=== PATIENT | female | born 1975 | race Caucasian/White ===

== ENCOUNTER 2016-10-04 16:36 | Emergency (ER) | payer BC ==
[~2016-10-04] VITALS: Ht 162.6 cm; Wt 107.7 kg
[~2016-10-04 16:36] MED LIST: ASPI1TAB7 PO; DICL75TA5 PO; IBUP-1724 PO; OMEP20CA10 PO; PROM25TA7 PO
[2016-10-04 16:53] VITALS: Ht 162.6 cm; Wt 107.7 kg
[2016-10-04] MEDS ORDERED: LISI-621 PO (16:59)
--- NOTE | 2016-10-04 17:45 | ERPDOC ---
Departure Disposition Decision Date: October 04, 2016 Disposition Decision Time: 20:07 (MICKY TAYLOR APRN) Disposition: 01 DISCHARGED HOME, SELF-CARE Impression Impression (MICKY TAYLOR APRN) Impression: Primary Impression: Abdominal pain Severity: Moderate (MICKY TAYLOR APRN) Condition: Improved Seen By: Mid-level only (MICKY TAYLOR APRN) Patient Instructions: Abdominal Pain (ED), Diet for Stomach Ulcers and Gastritis (ED) Problems/Meds/Labs Reviewed?: Yes Medications reviewed and manag: Yes (MICKY TAYLOR APRN) Additional Instructions: 1. Take Prilosec as prescribed each day 30 minutes prior to eating 2. Modify your diet by eliminating alcohol, caffeine, spicy and fatty foods. 3. Follow up with your primary care doctor for further care. Follow up care ordered?: Yes Mental Status: Alert, Oriented (MICKY TAYLOR APRN) Scripts Omeprazole (Omeprazole) 20 Mg Capsule.dr 20 MG PO ACB, #30 CAP Take 1 capsule, by mouth, one time a day (before breakfast). Prov: MICKY TAYLOR APRN 10/04/16 HPI - Abdominal Pain General Chief Complaint: Abdominal Pain Stated Complaint: ABD PAIN Time Seen by Provider: 17:45 Source: patient History/Exam Limitations: no limitations (MICKY TAYLOR APRN) Time Seen by Provider: 05:53 (VINITA YEN DO) HPI - Abdominal Pain Initial Comments Caitlin is a 41 year old white female who comes to the Er with cc: 3 days of left upper quadrant abdominal pain. Denies recent trauma, denies history of abdominal problems, but does have a hx of heartburn when she eats spicy foods. Describes pain as sharp and knife like going from LUQ through to her back at times. Diet is quite poor, eats mostly processed foods. This morning ate cheese its for breakfast around 330 am, then a bologna sandwich and large Dr Pepper for lunch. Indicates normally eating chips throughout the day and drinking Dr. Peppers. Has about 120 oz of caffeinated beverages daily. Denies vomiting, does have a little nausea. No fevers. No diarrhea. No constipation. No blood in stool. No prior EGD or colonoscopy. Denies chest pain. Has been coughing lately and felt like the pain was related to pulling something with coughing. Denies dysuria or hematuria. Denies flank pain. Has been working 12+ hr shifts and did work all day today as well. Onset: Getting worse Duration: other (3 days) Pain Scale: Now: 6/10 Location: LUQ Radiation: back Associated Symptoms: DENIES: fever/chills, swelling/mass in abdomen (MICKY TAYLOR APRN) Allergies: Coded Allergies: Influenza Virus Vaccines (Verified Allergy, Severe, 10/04/16) Past History Past Medical History Metabolic: hypertension, DENIES: diabetes GI: GERD Neurological: migraines Psychological: depression (MICKY TAYLOR APRN) Surgical History Reproductive/: , tubal ligation (MICKY TAYLOR APRN) Vaccines Hx Influenza Vaccination: No (ALLERGIC) Hx Pneumococcal Vaccination: No Hx Tetanus, Diptheria, Pertuss: No (MICKY TAYLOR APRN) Social History Smoking Status: Current every day smoker # of Packs/Tins per Day: 0.5 Substance Use Type: does not use Alcohol Intake: occasionally Current Occupational Status: employed (MICKY TAYLOR APRN) Review of Systems Constitutional Constitutional: DENIES: dizziness, fever (MICKY TAYLOR APRN) ENMT Mouth/Throat: DENIES: sore throat (MICKY TAYLOR GLOBAL MARKETING COORDINATOR) Cardiovascular Cardiac: DENIES: chest pain (MICKY TAYLOR APRN) Pulmonary Respiratory: cough (MICKY TAYLOR GLOBAL MARKETING COORDINATOR) GI Upper Abdomen: nausea, DENIES: vomiting (MICKY TAYLOR GLOBAL MARKETING COORDINATOR) General: DENIES: dysuria, hematuria (MICKY TAYLOR GLOBAL MARKETING COORDINATOR) Integumentary Skin: DENIES: rash (MICKY TAYLOR APRN) All other Systems All Other Systems: Reviewed and Negative (MICKY TAYLOR APRN) Physical Exam General General Nourishment: appears stated age, no acute distress, obese (MICKY TAYLOR APRN) Vitals and Pain First Documented Vital Signs Date Time Temp Pulse Resp B/P Pulse Ox O2 Delivery O2 Flow Rate FiO2 10/04/16 16:53 98.2 84 20 176/102 98 Room Air (VINITA YEN DO) Vitals and Pain Weight: Kilograms: 107.700 Height (feet): 5 Height (inches): 4.00 Triage Pain Scale: (TAYLOR,MICKY GLOBAL MARKETING COORDINATOR) Eyes (brief) Eyes Brief: found: PERRL, not found: scleral icterus (TAYLOR,MICKY GLOBAL MARKETING COORDINATOR) ENMT (brief) ENMT Brief: FOUND: mucosa moist, NOT FOUND: normal dentition (edentulous), pharnyx erythema (TAYLOR,MICKY GLOBAL MARKETING COORDINATOR) Neck (brief) Neck: NOT FOUND: adenopathy, thyromegaly (TAYLOR,MICKY GLOBAL MARKETING COORDINATOR) Respiratory (brief) Respiratory: FOUND: clear all siddiqui, equal bilaterally (TAYLOR,MICKY GLOBAL MARKETING COORDINATOR) Cardiovascular (brief) Cardiac: FOUND: regular rate, regular rhythm (TAYLOR,MICKY GLOBAL MARKETING COORDINATOR) Abdomen (brief) Abdominal Brief: FOUND: bowel normo active x4, soft, tender (luq-mild), NOT FOUND: distended, hepatosplenomegaly, pulsatile mass (TAYLOR,MICKY GLOBAL MARKETING COORDINATOR) Lymphatic (brief) Lymphatic Brief: NOT FOUND: lymphedema (TAYLOR,MICKY GLOBAL MARKETING COORDINATOR) Musculoskeletal (brief) Musculoskeletal Brief: NOT FOUND: tenderness (TAYLOR,MICKY GLOBAL MARKETING COORDINATOR) Integumentary (brief) Integumentary Brief: FOUND: dry, pink, warm, NOT FOUND: rash (TAYLOR,MICKY GLOBAL MARKETING COORDINATOR) Psychiatric (brief) Psychiatric Brief: FOUND: alert, attentive, normal affect, oriented (TAYLOR, MICKY GLOBAL MARKETING COORDINATOR) Differential Diagnoses Considering: Constipation, Gastroenteritis, GERD, IBS, Pancreatitis, Other ( shingles) (TAYLOR,MICKY GLOBAL MARKETING COORDINATOR) Progress Results/Orders Orders Procedure Category Date Status Time Cbc W/Auto LAB 10/04/16 Complete Diff-Reflex Manual 17:54 Cmp - Comprehensive LAB 10/04/16 Complete Metabolic 17:54 Lipase LAB 10/04/16 Complete 17:54 Kub W/Upright RAD 10/04/16 Taken 17:54 G.I. Cocktail PHA 10/04/16 Complete (/Maalox/Lidocaine 18:00 UA, LAB 10/04/16 Complete Dip&Micro(Complete) & 18:54 Iohexol (Omnipaque) PHA 10/04/16 Complete 19:07 Normal Saline (Ns) PHA 10/04/16 Complete 19:07 Saline Flush (Iv PHA 10/04/16 Complete Flush) 19:07 Ct Abd/Pelvis CT 10/04/16 Taken W/Contrast Only 18:57 (VINITA YEN DO) Lab Results Laboratory Tests Test 10/04/16 18:09 10/04/16 18:54 White Blood Count 6.9T/MM3 Red Blood Count 4.22M/MM3 Hemoglobin 12.1GM/DL Hematocrit 37.1% Mean Corpuscular Volume 87.9UM3 Mean Corpuscular Hemoglobin 28.7UUG Mean Corpuscular Hemoglobin Concent 32.6GM/DL RDW Standard Deviation 43.0FL Platelet Count 316T/MM3 Mean Platelet Volume 10.0UM3 Immature Granulocyte % (Auto) 0.1% Neutrophils (%) (Auto) 64.1% Lymphocytes (%) (Auto) 27.5% Monocytes (%) (Auto) 5.7% Eosinophils (%) (Auto) 2.3% Basophils (%) (Auto) 0.3% Absolute Immature Granulocyte (auto 0.01T/MM3 Absolute Neutrophils (auto) 4.4T/MM3 Absolute Lymphocytes (auto) 1.9T/MM3 Absolute Monocytes (auto) 0.4T/MM3 Absolute Eosinophils (auto) 0.2T/MM3 Absolute Basophils (auto) 0.0T/MM3 Turbidity < 20 Sodium Level 145MEQ/L Potassium Level 4.1MEQ/L Chloride Level 105MEQ/L Carbon Dioxide Level 25MEQ/L Anion Gap 15MEQ/L Blood Urea Nitrogen 9.0MG/DL Creatinine 0.7MG/DL Glomerular Filtration Rate Calc 92 BUN/Creatinine Ratio 13RATIO Glucose Level 92MG/DL Calculated Osmolality 278MOSM/KG Calcium Level 9.8MG/DL Total Bilirubin 0.40MG/DL Icterus Index < 2 Aspartate Amino Transf (AST/SGOT) 16U/L Alanine Aminotransferase (ALT/SGPT) 37U/L Alkaline Phosphatase 97U/L Total Protein 7.7G/DL Albumin 4.4G/DL Globulin 3.3G/DL Albumin/Globulin Ratio 1.3RATIO Lipase 40U/L Chemistry Specimen Hemolysis < 15 Urine Collection Type Urine Color Yellow Urine Turbidity Clear Urine pH 6.0 Urine Specific [place] 1.010 Urine Protein Negative Urine Glucose (UA) Negative Urine Ketones Negative Urine Blood 2+ Urine Nitrite Negative Urine Bilirubin Negative Urine Urobilinogen 0.2EU/DL Urine Leukocyte Esterase 1+ Urine RBC None seen/HPF Urine WBC 3-5/HPF Urine Squamous Epithelial Cells 5-10 Urine Bacteria None seen Urine Trichomonas Present Urine Culture Indicated Cult not indicated (VINITA YEN DO) Lab Results Laboratory Tests Test 10/04/16 18:09 10/04/16 18:54 White Blood Count 6.9T/MM3 Red Blood Count 4.22M/MM3 Hemoglobin 12.1GM/DL Hematocrit 37.1% Mean Corpuscular Volume 87.9UM3 Mean Corpuscular Hemoglobin 28.7UUG Mean Corpuscular Hemoglobin Concent 32.6GM/DL RDW Standard Deviation 43.0FL Platelet Count 316T/MM3 Mean Platelet Volume 10.0UM3 Immature Granulocyte % (Auto) 0.1% Neutrophils (%) (Auto) 64.1% Lymphocytes (%) (Auto) 27.5% Monocytes (%) (Auto) 5.7% Eosinophils (%) (Auto) 2.3% Basophils (%) (Auto) 0.3% Absolute Immature Granulocyte (auto 0.01T/MM3 Absolute Neutrophils (auto) 4.4T/MM3 Absolute Lymphocytes (auto) 1.9T/MM3 Absolute Monocytes (auto) 0.4T/MM3 Absolute Eosinophils (auto) 0.2T/MM3 Absolute Basophils (auto) 0.0T/MM3 Turbidity < 20 Sodium Level 145MEQ/L Potassium Level 4.1MEQ/L Chloride Level 105MEQ/L Carbon Dioxide Level 25MEQ/L Anion Gap 15MEQ/L Blood Urea Nitrogen 9.0MG/DL Creatinine 0.7MG/DL Glomerular Filtration Rate Calc 92 BUN/Creatinine Ratio 13RATIO Glucose Level 92MG/DL Calculated Osmolality 278MOSM/KG Calcium Level 9.8MG/DL Total Bilirubin 0.40MG/DL Icterus Index < 2 Aspartate Amino Transf (AST/SGOT) 16U/L Alanine Aminotransferase (ALT/SGPT) 37U/L Alkaline Phosphatase 97U/L Total Protein 7.7G/DL Albumin 4.4G/DL Globulin 3.3G/DL Albumin/Globulin Ratio 1.3RATIO Lipase 40U/L Chemistry Specimen Hemolysis < 15 Urine Collection Type Urine Color Yellow Urine Turbidity Clear Urine pH 6.0 Urine Specific [place] 1.010 Urine Protein Negative Urine Glucose (UA) Negative Urine Ketones Negative Urine Blood 2+ Urine Nitrite Negative Urine Bilirubin Negative Urine Urobilinogen 0.2EU/DL Urine Leukocyte Esterase 1+ Urine RBC None seen/HPF Urine WBC 3-5/HPF Urine Squamous Epithelial Cells 5-10 Urine Bacteria None seen Urine Trichomonas Present Urine Culture Indicated Cult not indicated (MICKY TAYLOR APRN) Medications Current ED Medications Pharmacy Profile Note (/Maalox/ Lidocaine Soln) 30 ml O ONCE PO Last administered on 10/04/16t 18:52; Start 10/04/16 at 18:00; Stop 10/04/16 at 18:01; Status DC Iohexol 1 bottle 1 bottle STK-MED ONCE .ROUTE ; Start 10/04/16 at 19:07; Stop 10/04/16 at 19:08; Status DC Sodium Chloride (NS) 100 ml @ As Directed STK-MED ONCE .ROUTE ; Start 10/04/16 at 19:07; Stop 10/04/16 at 19:08; Status DC Sodium Chloride (Iv Flush) 10 ml STK-MED ONCE .ROUTE ; Start 10/04/16 at 19:07; Stop 10/04/16 at 19:08; Status DC (VINITA YEN DO) Progress Progress Gi cocktail given in ED 1999- CT normal. patient reports pain is actually better. Discussed diet modification and otc prilosec. verbalized understanding. (MICKY TAYLOR APRN) Xray Xray : Xray: KUB Upright Interpretation: Normal, Interpreted by Me (makeda) (MICKY TAYLOR APRN) CT CT : CT: Abd/Pelvis IV contrast Interpretation: Normal, Faxed Report (MICKY TAYLOR APRN) MICKY TAYLOR APRN October 04, 2016 17:45 VINITA YEN DO October 04, 2016 22:52
[2016-10-04] MEDS ORDERED: G.I. COCKTAIL 30ml PO ONE (18:00)
[2016-10-04 18:16] LABS: BASOPHILS % (AUTO) 0.3 % (0-2); EOSINOPHILS # (AUTO) 0.2 T/MM3 (0-0.5); EOSINOPHILS % (AUTO) 2.3 % (0-4); HCT - HEMATOCRIT 37.1 % (36-46); HGB - HEMOGLOBIN 12.1 GM/DL (12-16); IMMATURE GRANULOCYTE # (AUTO) 0.01 T/MM3 (0.00-0.03); IMMATURE GRANULOCYTE % (AUTO) 0.1 % (0.0-0.5); LYMPHOCYTES # (AUTO) 1.9 T/MM3 (1-4.8); LYMPHOCYTES % (AUTO) 27.5 % (23-45); MEAN CORPUSCULAR HGB 28.7 UUG (26-34); MEAN CORPUSCULAR HGB CONC(MCHC 32.6 GM/DL (31-37); MEAN CORPUSCULAR VOLUME 87.9 UM3 (80-100); MONOCYTES # (AUTO) 0.4 T/MM3 (0-0.8); MONOCYTES % (AUTO) 5.7 % (0-9.0); NEUTROPHILS #(AUTO)-ABSOLUTE 4.4 T/MM3 (1.8-7.7); NEUTROPHILS % (AUTO) 64.1 % (33-66); RED BLOOD COUNT 4.22 M/MM3 (4.00-5.20); WBC - WHITE BLOOD COUNT 6.9 T/MM3 (4.5-11.0)
[2016-10-04 18:23] LABS: ALBUMIN 4.4 G/DL (3.5-5.0); ALBUMIN/GLOBULIN RATIO 1.3 RATIO (1.1-2.2); ALKALINE PHOSPHATASE 97 U/L (38-126); ALT (SGPT) 37 U/L (9-52); ANION GAP 15 MEQ/L (5-15); AST (SGOT) 16 U/L (14-36); BUN/CREATININE RATIO 13 RATIO (6-26); CALCIUM 9.8 MG/DL (8.4-10.2); CHLORIDE 105 MEQ/L (98-107); CO2 - CARBON DIOXIDE 25 MEQ/L (22-30); CREATININE 0.7 MG/DL (0.7-1.2); GLOMERULAR FILTRATION RATE 92; GLUCOSE 92 MG/DL (65-110); LIPASE 40 U/L (23-300); POTASSIUM 4.1 MEQ/L (3.6-5); SODIUM 145 MEQ/L (134-144); TOTAL PROTEIN 7.7 G/DL (6.3-8.2)
[2016-10-04 19:05] LABS: BLOOD, URINE 2+ (NEGATIVE); COLOR,URINE YELLOW (YELLOW); LEUKOCYTE ESTERASE ,URINE 1+ (NEGATIVE); NITRITE,URINE NEGATIVE (NEGATIVE); UROBILINOGEN,URINE 0.2 EU/DL (NORMAL)
[2016-10-04] MEDS ORDERED: NORMAL SALINE 100 ML ONE (19:07)
[2016-10-04] MEDS ORDERED: IOHEXOL 300 MG/ML 100ml INJECTION ONE (19:07)
[2016-10-04] MEDS ORDERED: SALINE FLUSH 10ml SYRINGE ONE (19:07)
--- NOTE | 2016-10-04 19:13 | NUR ---
TO CT VIA CART
[2016-10-04 19:16] LABS: TRICHOMONAS,URINE PRESENT
[2016-10-04 19:19] LABS: BACTERIA,URINE NONE SEEN (NEGATIVE); RBC,URINE NONE SEEN /HPF (0-3)
--- NOTE | 2016-10-04 19:25 | NUR ---
RETURN FROM CT
--- NOTE | 2016-10-04 19:33 | NUR ---
STATUS PT IS POSITIONED FOR COMFORT. WARM BLANKET GIVEN. LIGHTS DIMMED, TV ON. PT AWARE WE WILL BE WAITING FOR APPROX [address] RESULTS. PT OK WITH THIS
[2016-10-04] MEDS ORDERED: OMEP20CA10 PO (20:10)
[2016-10-04 20:30] VITALS: BP 172/86; PULSE 70; RESP 18; TEMP 98.2; O2SAT 99
--- NOTE | 2016-10-04 20:30 | NUR ---
DEPART PT IS GIVEN DISMISSAL INSTRUCTIONS WITH VERBAL UNDERSTANDING. SCRIPT X1 GIVEN TO PT. PT LEAVE AMBULATORY TO ED EXIT
--- NOTE | 2016-10-05 08:11 | DI ---
Indication: ITS.REASON: luq abd pain PROCEDURE: CT ABD/PELVIS W/CONTRAST ONLY: Encounter: Initial Comparison: None Technique: Axial CT images were performed through the abdomen and pelvis after the administration of intravenous contrast. Coronal and sagittal two-dimensional reformats. Automated Exposure Control and Iterative Reconstruction dose reducing techniques were utilized. Contrast: Omnipaque 300 100 mL Findings: The lung bases are clear. The liver is normal. The gallbladder is normal. The spleen, pancreas and adrenal glands are normal. Left kidney is normal. Large right lower pole renal cyst. No abdominal or pelvic adenopathy. Bladder is normal. Uterus and ovaries are normal for age. No free fluid. Mild sigmoid diverticulosis without evidence of acute diverticulitis. No bowel obstruction. The appendix is normal. Bone windows show mild degenerative change in the spine. Impression: No acute disease process seen. There is a preliminary report by [employer]. .
--- NOTE | 2016-10-05 08:15 | DI ---
Indication: ITS.REASON: abd pain PROCEDURE: KUB W/UPRIGHT: Encounter: Initial Comparison: None Findings: The visualized lung bases are clear. There is no free air on the upright view. The bowel gas pattern is nonobstructive and nonspecific. Gas is seen in nondilated small and large bowel to the level of the rectum. Moderate stool is seen throughout the colon. The bony structures are grossly unremarkable. Impression: Nonobstructive nonspecific bowel gas pattern. .
== END 2016-10-04 20:30 | disposition home or self-care (01) ==
LOC: ED 16:36
DX: R10.12 Left upper quadrant pain (principal); R11.0 Nausea; R05 Cough
CPT/HCPCS: 36415; 74020; 74177; 80053; 81001; 83690; 85025; 99284; J7050; J7999; Q9967

== ENCOUNTER 2017-11-10 08:10 | Observation (INO) ==
--- NOTE | 2017-11-10 08:32 | Emergency Department Report ---
Neuro HPI - General Chief Complaint: Neuro Symptoms/Deficit Stated Complaint: numbness down left Time Seen by Provider: 11/10/17 08:32 - Related Data Home Medications: Home Medications Medication Instructions Recorded Confirmed Acetaminophen/Diphenhydramine 2 cap PO HS 02/08/17 11/10/17 [Acetaminophen Pm Caplet] Lisinopril [Prinivil] 40 mg PO DAILY 02/08/17 11/10/17 Albuterol Sulfate [Proair Hfa] 2 puff INH Q4H PRN 11/10/17 11/10/17 Amlodipine [Norvasc] 2.5 mg PO HS 11/10/17 11/10/17 Ascorbic Acid [Vitamin C] 500 mg PO DAILY 11/10/17 11/10/17 Benzonatate [Benzonatate] 100 mg PO TID PRN 11/10/17 11/10/17 Budesonide/Formoterol Fumarate 2 puff INH BID 11/10/17 11/10/17 [Symbicort 160-4.5 Mcg Inhaler] Cetirizine HCl [Zyrtec] 10 mg PO DAILY 11/10/17 11/10/17 Cholecalciferol (Vitamin D3) 2,000 unit PO DAILY 11/10/17 11/10/17 [Vitamin D3] Cyanocobalamin (B-12) [Vit. B-12] 1,000 mcg IM Q30D 11/10/17 11/10/17 Ferrous Sulfate [Iron] 325 mg PO DAILY 11/10/17 11/10/17 Nystatin Oral Liq. [Mycostatin] 1 dose PO QID PRN 11/10/17 11/10/17 Omeprazole [Prilosec] 20 mg PO BID 11/10/17 11/10/17 Allergies/Adverse Reactions: Allergies Allergy/AdvReac Type Severity Reaction Status Date / Time Influenza Virus Vaccines Allergy Severe Swelling Verified 11/10/17 08:23 varenicline [From Chantix] AdvReac Mild Suicidal Verified 11/10/17 08:23 thoughts Course Vital Signs Temperature 98 F 11/10/17 08:10 Pulse Rate 80 11/10/17 08:10 Respiratory Rate 20 11/10/17 08:10 Blood Pressure 140/79 H 11/10/17 08:10 Pulse Oximetry 99 11/10/17 08:10 Temperature 98 F 11/10/17 08:10 Pulse Rate 80 11/10/17 08:10 Respiratory Rate 20 11/10/17 08:10 Blood Pressure 140/79 H 11/10/17 08:10 Pulse Oximetry 99 11/10/17 08:10 Neuro Symptoms/Deficit - Lab Data Result diagrams: 11/10/17 08:58 11/10/17 08:58 Disposition Clinical Impression: Paresthesia Disposition: 02 [place] [facility] [facility] [place]: Stable - Seen By: physician
--- OUTSIDE RECORDS SUMMARY | 2017-11-10 08:40 | External Medical Summary | Referral Summary ---
:1975 Author Organization [facility], [facility] Address [address] [place] [address] [place] [id number] Care Team Providers Name Role Phone No PCP, States Primary Care Physician Encounter VC Date(s): 09/24/16 - 09/24/16 [facility] [place], [address] [place] [id number]- Discharge Diagnosis: Benign essential HTN Discharge Disposition: 01-Home or Self Care Attending Physician: Orlando Schwab MD Admitting Physician: Orlando Schwab MD Vital Signs Most recent to oldest [Reference Range]: 1 Temperature Tympanic [36.6-38.1 degC] 37.3 degC (09/24/16 11:43 AM) Peripheral Pulse Rate [60-100 bpm] 98 bpm (09/24/16 11:43 AM) Blood Pressure [90-140/60-90 mmHg] 172/108 mmHg *HI* (09/24/16 11:43 AM) SpO2 98 % (09/24/16 11:43 AM) Problem List Condition Effective Dates Status Health Status Informant Morbid obesity(Confirmed) Active patient Allergies, Adverse Reactions, Alerts No Known Allergies Medications ibuprofen 0 Refill(s) Start Date: 09/24/16 Status: Orderedlisinopril 20 mg oral tablet 20 mg 1 tabs, Oral, Daily, # 30 tabs, 1 Refill(s), Pharmacy: [id number] Start Date: 09/24/16 Status: OrderedTylenol Regular Strength mg, Oral, q4hr, 0 Refill(s) Start Date: 09/24/16 Status: Ordered Results No data available for this section Immunizations No data available for this section Procedures No data available for this section Social History Social History Type Response Smoking Status Current every day smoker; Type: Cigarettes; Tobacco use per day : 1 Pack Assessment and Plan Extracted from: Title: Office Visit Note Author: Orlando Schwab MD Date: 09/24/16 Assessment/Plan 1.Benign essential HTN I think she likely has benign essential hypertension. I've recommended starting lisinopril 20 mg daily. I encouraged her to call early next week and follow up to see if she can get in to see Dr David Foreman if not we can follow her in our office. We talkedabout potential side effectsfrom this medication if she runs into difficulty she should stop it and follow-up as directed. Call with problems questions or concerns.
--- OUTSIDE RECORDS SUMMARY | 2017-11-10 08:40 | External Medical Summary | Referral Summary ---
:1975 Author Organization [facility] [address] [place] [id number] Care Team Providers Name Role Phone Apollo Foreman Primary Care Physician Encounter VC Date(s): 10/07/16 - 10/07/16 [facility] [address] [place] [id number]- Discharge Diagnosis: Morbid obesity Discharge Diagnosis: Snoring Discharge Diagnosis: Benign essential hypertension Discharge Diagnosis: Acute gastritis Discharge Diagnosis: Acute pansinusitis Discharge Diagnosis: COHEN (dyspnea on exertion) Discharge Diagnosis: TMJ syndrome Discharge Diagnosis: Acute bronchitis Discharge Diagnosis: COPD exacerbation Discharge Diagnosis: Daytime sleepiness Discharge Disposition: 01-Home or Self Care Attending Physician: Apollo Foreman MD Admitting Physician: Apollo Foreman MD Vital Signs Most recent to oldest [Reference Range]: 1 Temperature Tympanic [36.6-38.1 degC] 37.1 degC (10/07/16 8:33 AM) Peripheral Pulse Rate [60-100 bpm] 92 bpm (10/07/16 8:33 AM) Blood Pressure [90-140/60-90 mmHg] 152/94 mmHg *HI* (10/07/16 8:33 AM) Problem List Condition Effective Dates Status Health Status Informant Morbid obesity(Confirmed) Active patient Allergies, Adverse Reactions, Alerts Substance Reaction Severity Status flu vaccines Active Medications amoxicillin 500 mg oral capsule 500 mg 1 caps, Oral, TID, X 10 days, # 30 caps, 0 Refill(s) Start Date: 10/05/16 Stop Date: 10/15/16 Status: OrderedCarafate 1 g/10 mL oral suspension 1 g 10 mL, Oral, QIDACHS, # 2,240 mL, 0 Refill(s) Start Date: 10/05/16 Status: Orderedlisinopril 20 mg oral tablet 20 mg 1 tabs, Oral, Daily, # 30 tabs, 1 Refill(s), Pharmacy: [facility] Start Date: 09/24/16 Status: Orderedlisinopril 40 mg oral tablet 40 mg 1 tabs, Oral, Daily, # 30 tabs, 11 Refill(s), Pharmacy: [facility] Start Date: 10/07/16 Status: OrderedNorco 5 mg-325 mg oral tablet 1 tabs, Oral, q6hr, as needed for pain, # 12 tabs, 0 Refill(s) Start Date: 10/05/16 Stop Date: 10/08/16 Status: Orderedomeprazole 20 mg oral delayed release capsule 20 mg 1 caps, Oral, Daily, 0 Refill(s) Start Date: 10/07/16 Status: OrderedpredniSONE 20 mg oral tablet See Instructions, 2 tabs daily for 3 days, then 1 tab daily for 3 days, # 9 tabs , 0 Refill(s), Pharmacy: [facility], 2 tabs daily for 3 days, then 1 tab daily for 3 days Start Date: 10/07/16 Stop Date: 10/13/16 Status: Ordered Results No data available for this section Immunizations No data available for this section Procedures No data available for this section Social History Social History Type Response Smoking Status Current every day smoker; Type: Cigarettes; Tobacco use per day : 1 Pack; Number of years: 32 Assessment and Plan Extracted from: Title: Ambulatory Patient Education Author: Apollo Foreman MD Date: 10/07/16 Allergy Shortness of Breath Shortness of breath means you have trouble breathing. It could also mean that you have a medical problem. You should get immediate medical care for shortness of breath. CAUSES Not enough oxygen in the air such as with high altitudes or a smoke-filled room. Certain lung diseases, infections, or problems. Heart disease or conditions, such as angina or heart failure. Low red blood cells (anemia). Poor physical fitness, which can cause shortness of breath when you exercise. Chest or back injuries or stiffness. Being overweight. Smoking. Anxiety, which can make you feel like you are not getting enough air. DIAGNOSIS Serious medical problems can often be found during your physical exam. Tests may also be done to determine why you are having shortness of breath. Tests may include: Chest X-rays. Lung function tests. Blood tests. An electrocardiogram (ECG). An ambulatory electrocardiogram. An ambulatory ECG records your heartbeat patterns over a 24-hour period. Exercise testing. A transthoracic echocardiogram (TTE). During echocardiography, sound waves are used to evaluate how blood flows through your heart. A transesophageal echocardiogram (SALMA). Imaging scans. Your health care provider may not be able to find a cause for your shortness of breath after your exam. In this case, it is important to have a follow-up exam with your health care provider as directed. TREATMENT Treatment for shortness of breath depends on the cause of your symptoms and can vary greatly. HOME CARE INSTRUCTIONS Do not smoke. Smoking is a common cause of shortness of breath. If you smoke, ask for help to quit. Avoid being around chemicals or things that may bother your breathing, such as paint fumes and dust. Rest as needed. Slowly resume your usual activities. If medicines were prescribed, take them as directed for the full length of time directed. This includes oxygen and any inhaled medicines. Keep all follow-up appointments as directed by your health care provider. SEEK MEDICAL CARE IF: Your condition does not improve in the time expected. You have a hard time doing your normal activities even with rest. You have any new symptoms. SEEK IMMEDIATE MEDICAL CARE IF: Your shortness of breath gets worse. You feel light-headed, faint, or develop a cough not controlled with medicines. You start coughing up blood. You have pain with breathing. You have chest pain or pain in your arms, shoulders, or abdomen. You have a fever. You are unable to walk up stairs or exercise the way you normally do. MAKE SURE YOU: Understand these instructions. Will watch your condition. Will get help right away if you are not doing well or get worse. This information is not intended to replace advice given to you by your health care provider. Make sure you discuss any questions you have with your health care provider. Document Released: 02/14/2002 Document Revised: 05/27/2014 Document Reviewed: 08/06/2012 [employer] Patient Education 2016 [employer]. Emergency Medicine Gastritis, Adult Gastritis is soreness and swelling (inflammation) of the lining of the stomach. Gastritis can develop as a sudden onset (acute) or long-term (chronic) condition. If gastritis is not treated, it can lead to stomach bleeding and ulcers. CAUSES Gastritis occurs when the stomach lining is weak or damaged. Digestive juices from the stomach then inflame the weakened stomach lining. The stomach lining may be weak or damaged due to viral or bacteri al infections. One common bacterial infection is the Helicobacter pylori infection. Gastritis can also result from excessive alcohol consumption, taking certain medicines, or having too much acid in the stomach. SYMPTOMS In some cases, there are no symptoms. When symptoms are present, they may include: Pain or a burning sensation in the upper abdomen. Nausea. Vomiting. An uncomfortable feeling of fullness after eating. DIAGNOSIS Your caregiver may suspect you have gastritis based on your symptoms and a physical exam. To determine the cause of your gastritis, your caregiver may perform the following: Blood or stool tests to check for the H pylori bacterium. Gastroscopy. A thin, flexible tube (endoscope) is passed down the esophagus and into the stomach. The endoscope has a light and camera on the end. Your caregiver uses the endoscope to view the inside of the stomach. Taking a tissue sample (biopsy) from the stomach to examine under a microscope. TREATMENT Depending on the cause of your gastritis, medicines may be prescribed. If you have a bacterial infection, such as an H pylori infection, antibiotics may be given. If your gastritis is caused by too much acid in the stomach, H2 blockers or antacids may be given. Your caregiver may recommend that you stop taking aspirin, ibuprofen, or other nonsteroidal anti- inflammatory drugs (NSAIDs). HOME CARE INSTRUCTIONS Only take [id number] or prescription medicines as directed by your caregiver. If you were given antibiotic medicines, take them as directed. Finish them even if you start to feel better. Drink enough fluids to keep your urine clear or pale yellow. Avoid foods and drinks that make your symptoms worse, such as: Caffeine or alcoholic drinks. Chocolate. Peppermint or mint flavorings. Garlic and onions. Spicy foods. [place] fruits, such as oranges, asim, or limes. Tomato-based foods such as sauce, chili, salsa, and pizza. Fried and fatty foods. Eat small, frequent meals instead of large meals. SEEK IMMEDIATE MEDICAL CARE IF: You have black or dark red stools. You vomit blood or material that looks like coffee grounds. You are unable to keep fluids down. Your abdominal pain gets worse. You have a fever. You do not feel better after 1 week. You have any other questions or concerns. MAKE SURE YOU: Understand these instructions. Will watch your condition. Will get help right away if you are not doing well or get worse. This information is not intended to replace advice given to you by your health care provider. Make sure you discuss any questions you have with your health care provider. Document Released: 05/16/2002 Document Revised: 11/20/2012 Document Reviewed: 07/04/2012 [employer] Interactive Patient Education 2016 [facility] Chronic Obstructive Pulmonary Disease Exacerbation Chronic obstructive pulmonary disease (COPD) is a common lung condition in which airflow from the lungs is limited. COPD is a general term that can be used to describe many different lung problems that limit airflow, including chronic bronchitis and emphysema. COPD exacerbations are episodes when breathing symptoms become much worse and require extra treatment. Without treatment, COPD exacerbations ca n be life threatening, and frequent COPD exacerbations can cause further damage to your lungs. CAUSES Respiratory infections. Exposure to smoke. Exposure to air pollution, chemical fumes, or dust. Sometimes there is no apparent cause or trigger. RISK FACTORS Smoking cigarettes. Older age. Frequent prior COPD exacerbations. SIGNS AND SYMPTOMS Increased coughing. Increased thick spit (sputum) production. Increased wheezing. Increased shortness of breath. Rapid breathing. Chest tightness. DIAGNOSIS Your medical history, a physical exam, and tests will help your health care provider make a diagnosis. Tests may include: A chest X-ray. Basic lab tests. Sputum testing. An arterial blood gas test. TREATMENT Depending on the severity of your COPD exacerbation, you may need to be admitted to a hospital for treatment. Some of the treatments commonly used to treat COPD exacerbations are: Antibiotic medicines. Bronchodilators. These are drugs that expand the air passages. They may be given with an inhaler or nebulizer. Spacer devices may be needed to help improve drug delivery. Corticosteroid medicines. Supplemental oxygen therapy. Airway clearing techniques, such as noninvasive ventilation (NIV) and positive expiratory pressure (PEP). These provide respiratory support through a mask or other noninvasive device. HOME CARE INSTRUCTIONS Do not smoke. Quitting smoking is very important to prevent COPD from getting worse and exacerbations from happening as often. Avoid exposure to all substances that irritate the airway, especially to tobacco smoke. If you were prescribed an antibiotic medicine, finish it all even if you start to feel better. Take all medicines as directed by your health care provider.It is important to use correct technique with inhaled medicines. Drink enough fluids to keep your urine clear or pale yellow (unless you have a medical condition that requires fluid restriction). Use a cool mist vaporizer. This makes it easier to clear your chest when you cough. If you have a home nebulizer and oxygen, continue to use them as directed. Maintain all necessary vaccinations to prevent infections. Exercise regularly. Eat a healthy diet. Keep all follow-up appointments as directed by your health care provider. SEEK IMMEDIATE MEDICAL CARE IF: You have worsening shortness of breath. You have trouble talking. You have severe chest pain. You have blood in your sputum. You have a fever. You have weakness, vomit repeatedly, or faint. You feel confused. You continue to get worse. MAKE SURE YOU: Understand these instructions. Will watch your condition. Will get help right away if you are not doing well or get worse. This information is not intended to replace advice given to you by your health care provider. Make sure you discuss any questions you have with your health care provider. Document Released: 03/18/2008 Document Revised: 06/12/2015 Document Reviewed: 01/24/2014 [employer] Interactive Patient Education 2016 [employer] No follow up information was provided. Extracted from: Title: several problems Author: Apollo Foreman MD Date: 10/07/16 Impression and Plan Diagnosis TMJ syndrome (PTE33-AB M26.622, Discharge, Medical). Acute bronchitis (CDI31-TP J20.9, Discharge, Medical). COHEN (dyspnea on exertion) (DJJ67-NR R06.09, Discharge, Medical). COPD exacerbation (PGJ10-OG J44.1, Discharge, Medical). Morbid obesity (YUQ62-US E66.01, Discharge, Medical). Daytime sleepiness (WTD39-LG R40.0, Discharge, Medical). Snoring (JPB03-SO R06.83, Discharge, Medical). Acute gastritis (PSQ91-JT K29.00, Discharge, Medical). Benign essential hypertension (CWZ89-EJ I10, Discharge, Medical). Acute pansinusitis (SCQ92-HZ J01.40, Discharge, Medical). Plan: 1) Increase your Lisinopril to 40 mg daily. 2) Take the Prednisone as directed. 3) Continue your other meds as prescribed. 4) Stop smoking. 5) Stay off Ibuprofen, aspirin and Aleve. 6) See Sleep Medicine for evaluation of snoring and daytime sleepiness. 7) CXR ordered today. 8) Healthy diet and daily exercise with weight loss helps most things. 9) See me in 1-2 weeks for a recheck of everything. 10) You may use Nicotine patches OTC, if you wish, but they might worsen acid reflux stomach issues. 11) See your dentist about a TMJ splint for your left "ear" pain.. Orders Orders (Selected) Outpatient Orders Ordered Office Visit Level 5 Est 10846: Completed Chest XR 2 Views: Discontinued Office Visit Level 4 Est 18278: Prescriptions Prescribed lisinopril 40 mg oral tablet: 40 mg=1 tabs, Oral, Daily, 30 tabs, 11 Refill(s) predniSONE 20 mg oral tablet: See Instructions, 2 tabs daily for 3 days, then 1 tab daily for 3 days, 9 tabs, 0 Refill(s). Dx/Order Association Plan: Diagnosis: Acute bronchitis Comment: Ordered: Office Visit Level 5 Est [id number]; 10/07/16 11:04:00 CDT, Acute bronchitis | Acute pansinusitis | TMJ syndrome | COPD exacerbation | Acute gastritis | Benign essential hypertension | COHEN (dyspnea on exertion) | Daytime sleepiness | Morbid obesity | Snoring Discontinued: Office Visit Level 4 Est 20197; 10/07/16 9:06:00 CDT, Acute bronchitis | Acute gastritis | COPD exacerbation | COHEN (dyspnea on exertion) | TMJ syndrome | Benign essential hyp ertension | Daytime sleepiness | Snoring | Morbid obesity | Acute pansinusitis Other status: Chest XR 2 Views; 10/07/16 9:16:00 CDT, Routine, Stop date 10/07/16 9:16:00 CDT, Reason: Cough, Acute bronchitis | COPD exacerbation, ABN Status: Not Required (Completed) Diagnosis: Acute gastritis Comment: Ordered: Office Visit Level 5 Est [id number]; 10/07/16 11:04:00 CDT, Acute bronchitis | Acute pansinusitis | TMJ syndrome | COPD exacerbation | Acute gastritis | Benign essential hypertension | COHEN (dyspnea on exertion) | Daytime sleepiness | Morbid obesity | Snoring Discontinued: Office Visit Level 4 Est 75060; 10/07/16 9:06:00 CDT, Acute bronchitis | Acute gastritis | COPD exacerbation | COHEN (dyspnea on exertion) | TMJ syndrome | Benign essential hyp ertension | Daytime sleepiness | Snoring | Morbid obesity | Acute pansinusitis Diagnosis: Acute pansinusitis Comment: Ordered: Office Visit Level 5 Est [id number]; 10/07/16 11:04:00 CDT, Acute bronchitis | Acute pansinusitis | TMJ syndrome | COPD exacerbation | Acute gastritis | Benign essential hypertension | COHEN (dyspnea on exertion) | Daytime sleepiness | Morbid obesity | Snoring Discontinued: Office Visit Level 4 Est 88259; 10/07/16 9:06:00 CDT, Acute bronchitis | Acute gastritis | COPD exacerbation | COHEN (dyspnea on exertion) | TMJ syndrome | Benign essential hyp ertension | Daytime sleepiness | Snoring | Morbid obesity | Acute pansinusitis Diagnosis: Benign essential hypertension Comment: Ordered: Office Visit Level 5 Est [id number]; 10/07/16 11:04:00 CDT, Acute bronchitis | Acute pansinusitis | TMJ syndrome | COPD exacerbation | Acute gastritis | Benign essential hypertension | COHEN (dyspnea on exertion) | Daytime sleepiness | Morbid obesity | Snoring Discontinued: Office Visit Level 4 Est [id number]; 10/07/16 9:06:00 CDT, Acute bronchitis | Acute gastritis | COPD exacerbation | COHEN (dyspnea on exertion) | TMJ syndrome | Benign essential hyp ertension | Daytime sleepiness | Snoring | Morbid obesity | Acute pansinusitis Diagnosis: COPD exacerbation Comment: Ordered: Office Visit Level 5 Est 64894; 10/07/16 11:04:00 CDT, Acute bronchitis | Acute pansinusitis | TMJ syndrome | COPD exacerbation | Acute gastritis | Benign essential hypertension | COHEN (dyspnea on exertion) | Daytime sleepiness | Morbid obesity | Snoring Discontinued: Office Visit Level 4 Est 60602; 10/07/16 9:06:00 CDT, Acute bronchitis | Acute gastritis | COPD exacerbation | COHEN (dyspnea on exertion) | TMJ syndrome | Benign essential hyp ertension | Daytime sleepiness | Snoring | Morbid obesity | Acute pansinusitis Other status: Chest XR 2 Views; 10/07/16 9:16:00 CDT, Routine, Stop date 10/07/16 9:16:00 CDT, Reason: Cough, Acute bronchitis | COPD exacerbation, ABN Status: Not Required (Completed) Diagnosis: COHEN (dyspnea on exertion) Comment: Ordered: Office Visit Level 5 Est [id number]; 10/07/16 11:04:00 CDT, Acute bronchitis | Acute pansinusitis | TMJ syndrome | COPD exacerbation | Acute gastritis | Benign essential hypertension | COHEN (dyspnea on exertion) | Daytime sleepiness | Morbid obesity | Snoring Discontinued: Office Visit Level 4 Est 95241; 10/07/16 9:06:00 CDT, Acute bronchitis | Acute gastritis | COPD exacerbation | COHEN (dyspnea on exertion) | TMJ syndrome | Benign essential hyp ertension | Daytime sleepiness | Snoring | Morbid obesity | Acute pansinusitis Diagnosis: Daytime sleepiness Comment: Ordered: Office Visit Level 5 Est 47901; 10/07/16 11:04:00 CDT, Acute bronchitis | Acute pansinusitis | TMJ syndrome | COPD exacerbation | Acute gastritis | Benign essential hypertension | COHEN (dyspnea on exertion) | Daytime sleepiness | Morbid obesity | Snoring Discontinued: Office Visit Level 4 Est 38338; 10/07/16 9:06:00 CDT, Acute bronchitis | Acute gastritis | COPD exacerbation | COHEN (dyspnea on exertion) | TMJ syndrome | Benign essential hyp ertension | Daytime sleepiness | Snoring | Morbid obesity | Acute pansinusitis Diagnosis: Morbid obesity Comment: Ordered: Office Visit Level 5 Est [id number]; 10/07/16 11:04:00 CDT, Acute bronchitis | Acute pansinusitis | TMJ syndrome | COPD exacerbation | Acute gastritis | Benign essential hypertension | COHEN (dyspnea on exertion) | Daytime sleepiness | Morbid obesity | Snoring Discontinued: Office Visit Level 4 Est 05977; 10/07/16 9:06:00 CDT, Acute bronchitis | Acute gastritis | COPD exacerbation | COHEN (dyspnea on exertion) | TMJ syndrome | Benign essential hyp ertension | Daytime sleepiness | Snoring | Morbid obesity | Acute pansinusitis Diagnosis: Snoring Comment: Ordered: Office Visit Level 5 Est 06513; 10/07/16 11:04:00 CDT, Acute bronchitis | Acute pansinusitis | TMJ syndrome | COPD exacerbation | Acute gastritis | Benign essential hypertension | COHEN (dyspnea on exertion) | Daytime sleepiness | Morbid obesity | Snoring Discontinued: Office Visit Level 4 Est 41856; 10/07/16 9:06:00 CDT, Acute bronchitis | Acute gastritis | COPD exacerbation | COHEN (dyspnea on exertion) | TMJ syndrome | Benign essential hyp ertension | Daytime sleepiness | Snoring | Morbid obesity | Acute pansinusitis Diagnosis: TMJ syndrome Comment: Ordered: Office Visit Level 5 Est 34015; 10/07/16 11:04:00 CDT, Acute bronchitis | Acute pansinusitis | TMJ syndrome | COPD exacerbation | Acute gastritis | Benign essential hypertension | COHEN (dyspnea on exertion) | Daytime sleepiness | Morbid obesity | Snoring Discontinued: Office Visit Level 4 Est 24185; 10/07/16 9:06:00 CDT, Acute bronchitis | Acute gastritis | COPD exacerbation | COHEN (dyspnea on exertion) | TMJ syndrome | Benign essential hyp ertension | Daytime sleepiness | Snoring | Morbid obesity | Acute pansinusitis Additional Orders: Comment: Ordered: lisinopril 40 mg oral tablet,40 mg 1 tabs, Oral, Daily, # 30 tabs, 11 Refill(s), Pharmacy: [id number] Ordered: predniSONE 20 mg oral tablet,See Instructions, 2 tabs daily for 3 days, then 1 tab daily for 3 days, # 9 tabs, 0 Refill(s), [id number], 2 tabs daily for 3 days, then 1 tab daily for 3 days End of Orders .
[2017-11-10] MEDS ORDERED: SALINE FLUSH 10ml SYRINGE IVF PRN (08:45)
--- NOTE | 2017-11-10 09:47 | CT Scan Report ---
Indication: left-sided numbness including face PROCEDURE: CT head/brain wo con: Encounter: Initial Comparison: None Technique: Axial CT images through the head were performed without contrast. Iterative Reconstruction dose reducing technique was utilized. FINDINGS: The ventricles are of normal size, shape, and contour for the patient's age. The brainstem, cerebellum, and cerebral hemispheres have a normal morphology and CT attenuation. There is no evidence of midline displacement. No hemorrhage, signs of acute territorial stroke, mass effect, mass lesions, or edema is evident. The visualized portions of the skull base, midface, and calvarium demonstrate no abnormality. The paranasal sinuses are well aerated and free of significant disease. The tympanic and mastoid cavities appear normal. IMPRESSION: No acute intracranial abnormality or hemorrhage. .
[2017-11-10] MEDS ORDERED: ASPIRIN 81 MG CHEWABLE TABLET PO ONE (10:16)
[2017-11-10] MEDS ORDERED: SALINE FLUSH 10ml SYRINGE ONE (10:52)
[2017-11-10 11:48] VITALS: BMI 38.9
--- NOTE | 2017-11-10 12:38 | Magnetic Resonance Report ---
Indication: left sided parastesia PROCEDURE: MR head/brain wo/w con: Encounter: Initial Comparisons: Head CT dated November 10, 2017 Technique: Multiplanar, multisequence, MR imaging of the head with and without contrast was acquired. Contrast: 19 mL of ProHance FINDINGS: Mild motion artifact on some of the sequences. The ventricles are of normal size, shape, and contour for the patient's age. The brain stem, cerebellum, and cerebral hemispheres have a normal morphologic appearance as well as MR signal intensity on all pulse sequences. Following intravenous administration of contrast, no areas of abnormal enhancement are evident. There are no areas of restricted diffusion to suggest an acute infarct. There is no evidence of an intracranial mass lesion, intracranial hemorrhage, or hydrocephalus. The visualized portions of the orbits, calvarium, paranasal sinuses, and skull base demonstrate no significant abnormality. IMPRESSION: No acute intracranial abnormality. No evidence of acute infarct or demyelinating disease. .
[2017-11-10] MEDS ORDERED: ACETAMINOPHEN 325 MG TABLET PO PRN (13:30)
[2017-11-10] MEDS ORDERED: ALBUTEROL 2.5mg/3ml (0.083%) NEB AEROSOL PRN (13:39)
--- NOTE | 2017-11-10 13:47 | History & Physical Report ---
History of Present Illness Date: 11/10/17 Chief complaint: left sided numbness HPI: Caitlin is a pleasant 42 yo WF who presented to the ER with c/o left sided numbness intermittently for the last 2-3 days. She reports her symptoms had an insidious onset. No recent neck injury, MVA, chiropractic adjustments, roller- coaster rides, etc. She denies pain in neck or otherwise. She reports her left arm/hand feels numb. She has some tingling in her left big toe. It "comes in waves." She has not felt overtly weak, but reports that at times her leg and arms feel "heavy". No difficulty with fine motor movements. Did have trouble holding onto a door she was moving at work. She does feel that she might drag her left leg at times. No confusion. No difficulty with speech or swallow. I noticed a facial droop during our visit- she states that a neighbor recently told her that "her face was less droopy than it had been." No fever or chills. No extended time outdoors, known tick or mosquito exposure. No headaches reported. No new/increased stressors- reports things are "better than usual" right now. She does have known anemia, and states that she is "losing blood from somewhere. " She is set up to see Dr. Hallman on November 21 @ 1430pm. Reports her Iron % sat was 3. She has been started on oral iron and vitamin C. She has also gotten a B12 injection. She report that she has recently had some post-prandial fecal urgency. No pain in abdomen. Some visible blood in stool at times, which she attributes to hemorrhoids. No GERD or N/V. Recent 12 lb unintentional weight loss, last 3 months. No specific change in stool size or consistency. Extensive family hx of CA. Father recently in remission for NHL. Reports menses are normal, no changes, not overtly heavy. She does smoke, at least 1 ppd since age 9. Occasional 1.5-2ppd. +ETOH- 2 shots of Whiskey 1-2x/week mixed with Dr. Conway. No MJ or street drugs. Review of Systems All systems PM: 10-point ROS was reviewed, no additional remarkable complaints except Review of systems: See HPI. - Constitutional Constitutional: Present: weakness. Absent: fever(s), headache(s) - EENMT Eyes: Absent: loss of vision, pain - Cardiovascular Cardiovascular: Absent: chest pain, syncope, edema - Respiratory Respiratory: Present: cough (chronic. no change). Absent: chest congestion, excessive phlegm production - Gastrointestinal Gastrointestinal: Present: hematochezia. Absent: abdominal pain, dyspepsia, dysphagia, nausea, vomiting - Genitourinary Genitourinary: Absent: abnormal menses - Neurological Neurological: Present: numbness, paresthesias. Absent: confusion, dizziness, frequent falls, headache(s), loss of vision, memory loss, vertigo Past Medical History Medical History Updates: HTN. COPD. KRISTOFER. B12 deficiency. GERD. JELLY- does not have CPAP Surgical History: C/S x 2 Family History: Father- NHL PGF- NHL PGM- Stomach CA MGF- Throat CA Aunts x 2- CA Family History: As Above - Social History Smoking status: Current every day smoker Substance use type: does not use Alcohol intake frequency: a few times a week Household members: spouse Current occupational status: employed Current residence: Apartment/Private Home Medications Home Medications Medication Instructions Recorded Confirmed Type Acetaminophen/Diphenhydramine 2 cap PO HS 02/08/17 11/10/17 History [Acetaminophen Pm Caplet] Lisinopril [Prinivil] 40 mg PO DAILY 02/08/17 11/10/17 History Albuterol Sulfate [Proair Hfa] 2 puff INH Q4H PRN 11/10/17 11/10/17 History Amlodipine [Norvasc] 2.5 mg PO HS 11/10/17 11/10/17 History Ascorbic Acid [Vitamin C] 500 mg PO DAILY 11/10/17 11/10/17 History Benzonatate [Benzonatate] 100 mg PO TID PRN 11/10/17 11/10/17 History Budesonide/Formoterol Fumarate 2 puff INH BID 11/10/17 11/10/17 History [Symbicort 160-4.5 Mcg Inhaler] Cetirizine HCl [Zyrtec] 10 mg PO DAILY 11/10/17 11/10/17 History Cholecalciferol (Vitamin D3) 2,000 unit PO DAILY 11/10/17 11/10/17 History [Vitamin D3] Cyanocobalamin (B-12) [Vit. B-12] 1,000 mcg IM Q30D 11/10/17 11/10/17 History Ferrous Sulfate [Iron] 325 mg PO DAILY 11/10/17 11/10/17 History Nystatin Oral Liq. [Mycostatin] 1 dose PO QID PRN 11/10/17 11/10/17 History Omeprazole [Prilosec] 20 mg PO BID 11/10/17 11/10/17 History Allergies Allergy/AdvReac Type Severity Reaction Status Date / Time Influenza Virus Vaccines Allergy Severe Swelling Verified 11/10/17 08:23 varenicline [From Chantix] AdvReac Mild Suicidal Verified 11/10/17 08:23 thoughts Exam Vital Signs: Temperature 96.3 F L 11/10/17 11:48 Pulse Rate 71 11/10/17 11:48 Respiratory Rate 18 11/10/17 11:48 Blood Pressure 124/86 11/10/17 11:48 Pulse Oximetry 100 11/10/17 11:48 Height/Weight/BMI: Height 1.57 m Weight 96.6 kg Body Mass Index 38.9 - Constitutional Present: no acute distress, well nourished, well developed, obese, cooperative - Routine HEENT Exam Head: Present: atraumatic (Left facial droop) Eye: Present: EOMI (Tearing left eye), PERRL, normal accommodation ENT: Present: mucous membranes moist - Routine Neck Exam Present: supple, trachea midline. Absent: JVD, thyromegaly, tenderness, swelling - Routine Respiratory Exam Present: CTA bilaterally, distant breath sounds. Absent: accessory muscle use, dyspnea, rales, rhonchi, wheezes, crackles - Routine Cardiovascular Exam Present: RRR, S1, S2, no murmur - Routine Abdominal Exam Present: soft, normoactive bowel sounds, non distended, non tender. Absent: guarding, firm, mass - Routine Extremities Exam Present: no edema, non tender, full ROM, normal capillary refill - Routine Back/Spine/Pelvis Exam Back/Spine: Present: full ROM - Routine Skin Exam Present: intact, dry, warm - Routine Neurological Exam Present: alert, oriented X3, moving all extremities, normal tone, vision grossly intact, hearing grossly intact, facial asymmetry (Left facial droop), normal speech. Absent: sensory deficit, motor deficit, pronator drift, altered mental status, abnormal gait, nystagmus, hemineglect, tremors, asterixis - Routine Psychiatric Exam Present: normal affect, normal thought process, cooperative, good insight. Absent: depressed, anxious Results - Labs CBC & Chem 7: 11/10/17 08:58 11/10/17 08:58 - Imaging and Cardiology MRI - head Additional comments: FINDINGS: Mild motion artifact on some of the sequences. The ventricles are of normal size, shape, and contour for the patient's age. The brain stem, cerebellum, and cerebral hemispheres have a normal morphologic appearance as well as MR signal intensity on all pulse sequences. Following intravenous administration of contrast, no areas of abnormal enhancement are evident. There are no areas of restricted diffusion to suggest an acute infarct. There is no evidence of an intracranial mass lesion, intracranial hemorrhage, or hydrocephalus. The visualized portions of the orbits, calvarium, paranasal sinuses, and skull base demonstrate no significant abnormality. IMPRESSION: No acute intracranial abnormality. No evidence of acute infarct or demyelinating disease. . CT scan - head Additional comments: FINDINGS: The ventricles are of normal size, shape, and contour for the patient's age. The brainstem, cerebellum, and cerebral hemispheres have a normal morphology and CT attenuation. There is no evidence of midline displacement. No hemorrhage, signs of acute territorial stroke, mass effect, mass lesions, or edema is evident. The visualized portions of the skull base, midface, and calvarium demonstrate no abnormality. The paranasal sinuses are well aerated and free of significant disease. The tympanic and mastoid cavities appear normal. IMPRESSION: No acute intracranial abnormality or hemorrhage. . Assessment and Plan (1) Paresthesia Problem details: Left facial/upper extremity > left lower extremity Current visit: Yes Status: Acute Assessment and Plan: Impression: Recurrent left paresthesias Left facial droop HTN Iron deficient anemia, suspected GI losses Unintentional Weight loss JELLY History migraines Visual scotomas, recent Plan: 11/10/2017 Observation status. MRI was negative. 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 She does not have focal neuro deficits, other than facial droop- would be concerned with Naqvi's palsy (but the left paresthesias would be atypical). Will assess Folate, Mag, Phos, TSH now. Continue PPI, PO iron, Vit C- set up for outpatient evaluation with Dr. Hallman. Higher risk for malignancy. Hold Norvasc as BP is running normal. Continue lisinopril. D/W Dr. Rahman. SCDs for px. DVT Prophylaxis: SCD's GI Prophylaxis: Omeprazole Resuscitation Status: Full Code - Physician Narrative Physician: Allegra Rahman MD Narrative: Date: 11/10/17 Time: 2124 I have independently evaluated and examined this patient. I reviewed the chart, the patient's history, and the [employer] REPAIRER/PA's documented findings as above. We discussed and formulated the assessment and plan as above with additions as below: Caitlin was seen this afternoon with her mother at the bedside. She describes episodic tingling numbness starting in her neck on the left side extending into the left face and then the left arm off and on over the past 3 days. Today symptoms started at about 6:30 in the morning with the usual pattern but then extended into the left leg and persisted and have continued through the midafternoon when I saw her. Symptoms in the leg are less notable than in the upper extremity and face and she gets "waves"when the numbness is more notable than at other times. She reports a sensation that her left leg and left arm has felt heavy today that she's been able to ambulate and use her arm normally. She reports a history of migraine headaches with the last headache about 2 weeks ago; she does not have classic migraines with scotomas but has had 3 episodes where she had white wiggly lines in her visual field lasting for about 30 minutes-on one occasion this was binocular, one time it affected right vision , and the third event affected only the left vision. She did not have acute headache with any of the episodes of scotomas. She's had no visual symptoms with acute symptoms on the date of admission and denies any difficulty with speech, swallow, taste, or voiding. Her mother reports she has never noticed asymmetry to the patient's face and does not see any present this afternoon. NAD, alert Respirations nonlabored, regular cardiac rhythm Cranial nerves III through XII intact-no facial symmetry present at the time of my exam, no facial droop, no ptosis Funduscopic exam grossly normal - disc margin not seen in its entirety but areas of sharp disc are present [id number], [id number], rapid alternating movements all normal Power within normal limits; deep tendon reflexes +3 bilaterally at the biceps, brachioradialis, knees, and ankle jerks; toes downgoing CT head and MRI is reviewed by myself-no pathology noted or reported by radiology. Will obtain cervical spine films although I don't believe this will explain symptoms. Continue neuro checks, cannot exclude migraine equivalent or polyneuropathy although believe the latter is unlikely. If ongoing may require follow-up with neurology and possibly lumbar puncture. Paraneoplastic antibody panel with a.m. labs. Amlodipine resume per patient request. Findings reviewed with Dr. Swanson earlier today. Hospital Course Summary Disclaimer: The visit summary below is not to be considered part of the above Progress Note. Hospital Course: Impression: Recurrent left paresthesias Left facial droop HTN Chronic anemia, suspected GI losses Unintentional Weight loss JELLY Plan: 11/10/2017 Observation status. MRI was negative. 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 She does not have focal neuro deficits, other than facial droop- would be concerned with Naqvi's palsy (but the left paresthesias would be atypical). Will assess Folate, Mag, Phos, TSH now. Continue PPI, PO iron, Vit C- set up for outpatient evaluation with Dr. Hallman. Higher risk for malignancy. Hold Norvasc as BP is running normal. Continue lisinopril. Will obtain cervical spine films. If ongoing may require follow-up with neurology and possibly lumbar puncture. Paraneoplastic antibody panel with a.m. labs. SCDs for px.
--- NOTE | 2017-11-10 14:20 | XRay Report ---
INDICATION: Left sided weakness PROCEDURE: CHEST 2-VIEWS UPRIGHT (PA & LAT) Encounter: Initial COMPARISON: January 14, 2015 FINDINGS: The lungs are clear without evidence of focal abnormal airspace opacity. There is no pleural effusion or pneumothorax. The heart size, mediastinal contours and pulmonary vascularity are within normal limits. There is no significant skeletal abnormality. IMPRESSION: No acute cardiopulmonary disease. .
[2017-11-10] MEDS: OMEPRAZOLE 20 MG CAPSULE PO SCH (17:38)
[2017-11-10] MEDS: ARFORMOTEROL NEB 15mcg/2ml AEROSOL SCH (20:53)
[2017-11-10] MEDS: BUDESONIDE INH.SOLN 0.5mg/2ml NEB AEROSOL SCH (20:53)
[2017-11-10] MEDS ORDERED: AMLODIPINE 2.5 MG TABLET PO SCH (21:00)
[2017-11-11 07:26] VITALS: BP 113/80; TEMP 97.7; O2SAT 100
[2017-11-11] MEDS: ARFORMOTEROL NEB 15mcg/2ml AEROSOL SCH (07:43)
[2017-11-11] MEDS: BUDESONIDE INH.SOLN 0.5mg/2ml NEB AEROSOL SCH (07:43)
[2017-11-11 07:56] VITALS: RESP 18
[2017-11-11] MEDS ORDERED: FERROUS SULFATE 324 MG TABLET PO SCH (08:00)
[2017-11-11 08:05] VITALS: PULSE 63
[2017-11-11] MEDS: OMEPRAZOLE 20 MG CAPSULE PO SCH (08:57)
[2017-11-11] MEDS ORDERED: ASCORBIC ACID 500 MG TABLET PO SCH (09:00)
[2017-11-11] MEDS ORDERED: NON-FORMULARY MEDICATION 1 EACH EACH (Ferrous Sulfate [Iron] 325 MG) PO SCH (09:00)
[2017-11-11] MEDS ORDERED: ASPIRIN *EC* 81 MG TABLET PO SCH (09:00)
[2017-11-11] MEDS ORDERED: LISINOPRIL 40 MG TABLET PO SCH (09:00)
[2017-11-11] MEDS ORDERED: CYCLOBENZAPRINE 5 MG TABLET PO PRN (11:09)
--- NOTE | 2017-11-11 11:24 | Discharge Summary ---
Discharge Information Date of admission: 11/10/17 10:20 Anticipated date of discharge: 11/11/17 Attending Physician: Allegra Rahman MD Primary care physician: Apollo Foreman MD - Discharge Diagnosis (1) Paresthesia Status: Acute Recurrent left-sided paresthesias Left facial droop, variable HTN Iron deficient anemia, suspected GI losses Unintentional Weight loss JELLY History migraines Visual scotomas, recent - Laboratory Labs: On admission (11/10/17) hemoglobin 9.5 with MCV 80.7. Chemistries including liver enzymes unremarkable. TSH 1.29 on 11/10/17, total cholesterol 177, triglycerides 120, LDL 118, HDL 35 on 11/11/17 11/11/17 08:02 11/11/17 08:02 Serum folic acid level and paraneoplastic panel pending at discharge. - Radiology Radiology: CT of the head and brain without contrast on 11/10/17: The ventricles are of normal size, shape, and contour for the patient's age. The brainstem, cerebellum, and cerebral hemispheres have a normal morphology and CT attenuation. There is no evidence of midline displacement. No hemorrhage, signs of acute territorial stroke, mass effect, mass lesions, or edema is evident. The visualized portions of the skull base, midface, and calvarium demonstrate no abnormality. The paranasal sinuses are well aerated and free of significant disease. The tympanic and mastoid cavities appear normal. IMPRESSION: No acute intracranial abnormality or hemorrhage. ------ MRI of head and brain with and without contrast on 11/10/17: Mild motion artifact on some of the sequences. The ventricles are of normal size, shape, and contour for the patient's age. The brain stem, cerebellum, and cerebral hemispheres have a normal morphologic appearance as well as MR signal intensity on all pulse sequences. Following intravenous administration of contrast, no areas of abnormal enhancement are evident. There are no areas of restricted diffusion to suggest an acute infarct. There is no evidence of an intracranial mass lesion, intracranial hemorrhage, or hydrocephalus. The visualized portions of the orbits, calvarium, paranasal sinuses, and skull base demonstrate no significant abnormality. IMPRESSION: No acute intracranial abnormality. No evidence of acute infarct or demyelinating disease. ----- Cervical spine films, 3 views on 11/11/17: Formal report pending but there appears to be loss of cervical lordosis on preliminary review. History of Present Illness HPI: Caitlin is a pleasant 42 yo WF who presented to the ER with c/o left sided numbness intermittently for the last 2-3 days. She reports her symptoms had an insidious onset. No recent neck injury, MVA, chiropractic adjustments, roller- coaster rides, etc. She denies pain in neck or otherwise. She reports her left arm/hand feels numb. She has some tingling in her left big toe. It "comes in waves." She has not felt overtly weak, but reports that at times her leg and arms feel "heavy". No difficulty with fine motor movements. Did have trouble holding onto a door she was moving at work. She does feel that she might drag her left leg at times. No confusion. No difficulty with speech or swallow. I noticed a facial droop during our visit- she states that a neighbor recently told her that "her face was less droopy than it had been." No fever or chills. No extended time outdoors, known tick or mosquito exposure. No headaches reported. No new/increased stressors- reports things are "better than usual" right now. She does have known anemia, and states that she is "losing blood from somewhere. " She is set up to see Dr. Hallman on November 21 @ 1430pm. Reports her Iron % sat was 3. She has been started on oral iron and vitamin C. She has also gotten a B12 injection. She report that she has recently had some post-prandial fecal urgency. No pain in abdomen. Some visible blood in stool at times, which she attributes to hemorrhoids. No GERD or N/V. Recent 12 lb unintentional weight loss, last 3 months. No specific change in stool size or consistency. Extensive family hx of CA. Father recently in remission for NHL. Reports menses are normal, no changes, not overtly heavy. Objective Vital signs: Temperature 97.7 F 11/11/17 07:25 Pulse Rate 63 11/11/17 08:00 Respiratory Rate 18 11/11/17 07:52 Blood Pressure 113/80 11/11/17 07:25 Pulse Oximetry 100 11/11/17 07:52 NAD, alert, fluent speech Facial structure symmetric this morning Respirations nonlabored Range of motion at neck, although tightness/discomfort reported with movements that stretch left trapezius/upper back muscles Palpable spasm along the upper left trapezius which triggers discomfort Height/Weight/BMI: Height 1.57 m Weight 95.6 kg Body Mass Index 38.9 Hospital Course This is a general summary of the patient's hospital course. For more details refer to the complete medical record. Hospital course: Caitlin was hospitalized with recurrent episodes of left facial, scalp, and arm tingling paresthesias with numbness over the preceding 3 days which intensified and extended to involvement of the left leg on the date of admission. There was additionally history of some variable facial droop which has been present going back at least 5 years by patient history (although her mother indicated no awareness of facial asymmetry). Initially the patient denied any known trauma but on 11/11 she reports having had minor neck trauma about a week earlier when she was struck on the back of the neck by a "MDF panel" at work; she indicates that she didn't think it hit her very hard although it was enough to "take my breath away" briefly. She was able to continue working and did not require medical assistance at the time. Episodes of paresthesias developed within a couple of days of the upper back/neck injury. On presentation to the emergency room initial evaluation focused on potential stroke including negative CT head and subsequently MRI imaging was obtained with and without contrast to look for stroke and any evidence of demyelination. MRI was reassuringly normal. Patient was hospitalized for observation and subsequent neuro checks were stable with diminishing paresthesias described especially in the leg. The patient reported feeling completely normal on the morning of 11/11 although later had recurrent paresthesias in the left arm and lateral left neck. There was no recurrence of symptoms in the left leg or left face/scalp. She denied heaviness in her left leg or arm on the date of discharge and has not noted difficulty with speech or vision since hospitalization. Cervical spine films were obtained and demonstrated loss of cervical lordosis by my review. Exam clearly demonstrates palpable spasm in the left trapezius and I now believe this is the cause of the patient's presenting symptoms. Flexeril has been initiated and symptoms will be reevaluated in the upcoming days. Perineoplastic panel and folic acid are pending and formal reading of the cervical spine films are pending. She is subsequently asked to follow-up with Dr. Foreman for reassessment within a week for follow-up of pending data and for reassessment of symptoms. Stable for discharge at this time. Time spent with patient: discharge greater than 30 minutes Resuscitation Status: Full Code Discharge Plan - Discharge Disposition Discharge Date: 11/11/17 Disposition: 01 Discharged Home, Self-Care *Condition: Stable Reason For Visit (Visit label in EMR): left sided parasthesia - Discharge Medications *Discharge Medications: New Cyclobenzaprine [Flexeril] 1 tab PO TID #30 tab Continue Acetaminophen/Diphenhydramine [Acetaminophen Pm Caplet] 2 cap PO HS Lisinopril [Prinivil] 40 mg PO DAILY Ferrous Sulfate [Iron] 325 mg PO DAILY Cholecalciferol (Vitamin D3) [Vitamin D3] 2,000 unit PO DAILY Ascorbic Acid [Vitamin C] 500 mg PO DAILY Cetirizine HCl [Zyrtec] 10 mg PO DAILY Benzonatate 100 mg PO TID PRN PRN Reason: Cough Budesonide/Formoterol Fumarate [Symbicort 160-4.5 Mcg Inhaler] 2 puff INH BID Amlodipine [Norvasc] 2.5 mg PO HS Albuterol Sulfate [Proair Hfa] 2 puff INH Q4H PRN PRN Reason: Prn Orders Omeprazole [Prilosec] 20 mg PO BID Nystatin Oral Liq. [Mycostatin] 1 dose PO QID PRN PRN Reason: Prn Orders Cyanocobalamin (B-12) [Vit. B-12] 1,000 mcg IM Q30D - Discharge Packet/Instructions *Diet: Regular, decreasing salt intake will help control blood pressure *Activity: As tolerate *Pain Management/Treatment: Tylenol per package instructions for pain; cyclobenzaprine 10 mg 3 times daily as needed for muscle spasm-I would take fairly regularly over the weekend and then just in the evening or after work hours until neck improves. Add alternating warm packs and cold packs to your neck and upper back to help with muscle spasm and pain control. *Wound Care: Not applicable Additional Instructions: Continue all usual medications as before. Schedule follow-up appointment with Dr. Foreman for reassessment of left sided numbness in about one week. Formal results of neck x-rays and lab tests that are currently outstanding will hopefully be back at that time. *Expected Signs/Symptoms: Intermittent numbness primarily in your left hand/arm , your left hand may be weaker than usual, pain and stiffness in your neck *Notify Physician if: You have trouble moving your leg, vision worsens, obvious blood loss or rectal bleeding, passing out. *During Business Hours Contact: Dr. Foreman *After Business Hours Contact: Call [facility] at [phone] and ask that the on-call physician be paged *Pending Lab/Results: Follow up w/Provider (folic acid and paraneoplastic panel are pending) - Referrals/Follow Up *Referrals/Follow Up: Apollo Foreman MD [Primary Care Provider] - 1 Week - Patient Handouts Patient Handouts: Muscle Spasm (ED) - Dismissal Complete Discharge Instructions are:: Complete Physician Narrative - Narrative Attestation Narrative: Date: 11/11/17 Time: 1120
--- NOTE | 2017-11-12 12:22 | XRay Report ---
Indication: left arm/leg/facial numbness PROCEDURE: XR cervical spine 2-3V: Encounter: Initial Comparison: None Findings: Alignment of the cervical spine is straightened. No acute fracture or subluxation. Cervicothoracic junction is not seen due to overlapping soft tissues. No significant degenerative changes. Hypoplastic bilateral cervical ribs. Impression: No acute fracture. There is a preliminary report by virtual radiologic. .
== END 2017-11-11 11:55 | disposition home or self-care (01) ==
LOC: EDHOLD 08:10 → ED 08:10 → EDHOLD 10:40 → MED 11:43
PROVIDERS: ADMIT Internal Medicine; ATTEND Internal Medicine